=== PATIENT | male | born 1985 ===

== ENCOUNTER 2019-08-02 14:43 | Outpatient (CLI) | payer BC ==
--- NOTE | 2019-08-02 16:07 | MRI ---
MRI LUMBAR SPINE WITHOUT CONTRAST: 08/02/19 INDICATIONS: Back pain. Sciatica. Correlation made to plain films of lumbar spine. Rudimentary ribs is seen at what will be labeled as T12. This leaves five lumbar type vertebrae. Lumb ar vertebrae maintain normal height and alignment. Disc spaces are maintained and exhibit normal T2 s ignal. Mild disc bulge at L1-2 and L2-3 flatten the anterior thecal sac; however, no evidence of significant central canal or foraminal stenosis. Mild facet arthrosis at these levels. At L3-4, mild bulge is slightly more prominent flattening the anterior thecal sac. Facet arthrosis an d mild hypertrophy. Normal central canal stenosis. At L4-5, diffuse disc bulge is more pronounced. Facet and ligamentous hypertrophy is more pronounced. These changes result in mild to moderate central canal stenosis which is exacerbated by short pedicl e distance. At L5-S1, mild disc bulge; however, there is congenitally smaller thecal sac. No central canal or for aminal stenosis is present. IMPRESSION: Broad based bulge at L4-5 flattens the thecal sac. There is facet and ligamentous hypertrophy resulti ng in moderate central canal stenosis as described above. POS: [facility]
== END 2019-08-02 14:44 | disposition home or self-care (01) ==
LOC: BICMRI 14:43
PROVIDERS: ATTEND Family Medicine
DX: M54.17 Radiculopathy, lumbosacral region (principal); M51.16 Intervertebral disc disorders with radiculopathy, lumbar region; M48.061 Spinal stenosis, lumbar region without neurogenic claudication; M24.28 Disorder of ligament, vertebrae; M89.38 Hypertrophy of bone, other site
CPT/HCPCS: 72148